=== PATIENT | male | born 1945 | race Caucasian/White ===

== ENCOUNTER 2024-01-18 06:59 | Observation (INO) | payer OTHER ==
[2024-01-18 07:39] LABS: Absolute Eosinophils 0.2 K/uL (0-0.5); Absolute Lymphocytes (CBC) 0.9 K/uL (0.7-4.9); Absolute Monocytes 0.5 K/uL (0.1-1.3); Absolute Neutrophil 5.9 K/uL (1.8-8.0); Basophils % 0.6 % (0-1.3); Eosinophils % 2.8 % (0-4.4); Hematocrit 49.7 % (39.6-49.0); Hemoglobin 16.7 g/dL (13.6-17.9); Lymphocytes % 12.3 % (15.3-44.8); MCH 32.1 pg (27.0-35.0); MCHC 33.5 g/dL (32.0-36.0); MCV 95.8 fL (80-100); Neutrophils % 77.3 % (41.7-73.7); Nucleated Red Blood Cells % 0.2 % (0-0); Platelets 253 thou/uL (152-406); RBC Red Blood Cell Count 5.19 M/uL (4.33-5.43)
[2024-01-18 07:45] LABS: PT Prothrombin Time 11.8 SECONDS (9.4-12.5); PTT, Activated Partial Thromb 34.3 SECONDS (24.3-36.9); Protime INR 1.06
[2024-01-18] MEDS ORDERED: ACETAMINOPHEN 500 MG TAB ONE (07:51)
[2024-01-18 07:56] LABS: Albumin 3.3 g/dL (3.4-5.0); Albumin/Globulin Ratio 0.9 (1.1-1.8); Bilirubin Total 1.1 mg/dL (0.2-1.0); Globulin 3.5 g/dL (2.3-3.5); Protein, Total 6.8 g/dL (6.4-8.2)
[2024-01-18] MEDS ORDERED: CEFTRIAXONE 1000 MG/VIAL ONE (08:02)
[2024-01-18] MEDS ORDERED: NA CHLORIDE 0.9% 500 ML ONE (08:03)
[2024-01-18 08:12] LABS: SARS-CoV-2 Antigen CONTROL BLUE LINE VIS/BG OK; SARS-CoV-2 Antigen Rapid Res Negative (Negative)
--- NOTE | 2024-01-18 09:01 | RAD REPORT ---
EXAMINATION: ONE VIEW CHEST XR CLINICAL INDICATION: Male, 78 years old.,COUGH TECHNIQUE: Frontal chest projection is submitted. Examination is limited by patient positioning and t echnique. COMPARISON: 07/30/2012 FINDINGS: The lungs are well inflated, with no focal consolidation. Central interstitial prominence. No pneumo thorax or sizable effusion. The heart is moderately enlarged in size. Mediastinal contours are unremarkable. IMPRESSION: Findings suggesting central venous congestion or CHF.
[2024-01-18] MEDS ORDERED: ONDANSETRON 4 MG/2 ML VIAL IV PRN (09:36)
--- NOTE | 2024-01-18 09:37 | EDPHYS ---
Physician Documentation [facility] Name: Casey Kahn Age: 78 yrs Sex: Male : 1945 Arrival Date: 01/18/2024 Time: 06:59 Bed 18 Private MD: ED Physician Malcolm Zhang HPI: 01/17 07:51 This 78 yrs old Male presents to ER via Ambulatory with complaints of Chest ec2 Congestion. 07:51 Patient arrives today for evaluation of cough symptoms. Patient been having ec2 approximately greater than 10 days of cough symptoms. Patient reports he is having a productive sputum. No fevers or chills, no nausea or vomiting. Patient reports generalized weakness as well. History of previous smoking however stopped greater than 30 years ago.. Historical: - Allergies: 07:13 Sulfa (Sulfonamide Antibiotics); ll1 07:13 Hydocodone; ll1 - PMHx: 07:13 Diabetes - NIDDM; Hypertension; ll1 - Immunization history:: Adult Immunizations up to date. - Infectious Disease History:: Denies. - Social history:: Smoking status: Patient/guardian denies using tobacco, the patient reports quitting approximately 43 years ago. ROS: 07:51 Constitutional: as per hpi ec2 Exam: 07:51 Constitutional: GEN: NAD Head: atraumatic Eyes: EOMI Ears: External ears are ec2 normal. CV: regular rate LUNGS: no respiratory distress, no wheezes, no rales, rhonchi ABD: non-distended SKIN: no evidence of rashes MSK: no evidence of trauma Vital Signs: 07:14 BP 167 / 86; Pulse 98; Resp 22; Temp 98; Pulse Ox 88% on R/A; Weight 109.77 kg; Height ll1 5 ft. 10 in. ; Pain 0/10; 07:59 Resp 20; Pulse Ox 95% on 2 lpm NC; Pain 0/10; ll1 08:25 BP 175 / 95; Pulse 78; Resp 19; Pulse Ox 94% on 2 lpm NC; ll1 09:32 BP 175 / 93; Pulse 74; Resp 19; Pulse Ox 96% on 2 lpm NC; ll1 10:33 BP 171 / 85; Pulse 78; Resp 18; Pulse Ox 96% on 2 lpm NC; Pain 0/10; ll1 11:30 BP 166 / 82; Pulse 79; Resp 19; Pulse Ox 96% on 2 lpm NC; ll1 12:41 BP 156 / 82; Pulse 78; Resp 19; Pulse Ox 94% on R/A; ll1 07:14 Body Mass Index 34.72 (109.77 kg, 177.8 cm) ll1 07:14 Pain Scale: Adult ll1 07:59 Pain Scale: Adult ll1 10:33 Pain Scale: Adult ll1 MDM: 07:07 Medical Screening Exam initiated ec2 07:51 Data reviewed: vital signs. ED course: Patient arrives today for evaluation of cough ec2 and cold symptoms. Examination is remarkable for nontoxic individual who is in no significant respiratory distress. Will obtain septic workup and empirically treat with ceftriaxone.. 08:00 ED course: EKG independently reviewed and interpreted by me, shows normal sinus rhythm, ec2 rate of 83, no acute ST segment elevations, intervals are nonactionable. Does have nonspecific T wave abnormalities noted in the lateral leads.. 09:35 ED course: Patient with hypoxic saturations with sats in the mid 80, placed on oxygen ec2 with improvement. Will admit for hypoxia, likely CHF. Discussed with hospitalist, patient will be admitted to floor with med/tele. Will replenish hypokalemia as well.. 01/17 07:08 Order name: Influenza Screen (a \T\ B); Complete Time: 08:14 ec2 01/17 07:08 Order name: SARS RAPID; Complete Time: 08:14 ec2 01/17 07:14 Order name: Blood Culture Adult (2) ec2 01/17 07:14 Order name: CBC with Diff; Complete Time: 07:53 ec2 01/17 07:14 Order name: CMP; Complete Time: 08:03 ec2 01/17 07:14 Order name: Lactate w/ 2H reflex if indic.; Complete Time: 08:14 ec2 01/17 07:14 Order name: Protime (+inr); Complete Time: 07:53 ec2 01/17 07:14 Order name: Ptt, Activated; Complete Time: 07:53 ec2 01/17 09:02 Order name: BNP; Complete Time: 09:31 ec2 01/17 09:40 Order name: Urinalysis w/ reflexes EDMS 01/17 07:08 Order name: CXR XRAY; Complete Time: 09:01 ec2 01/17 09:40 Order name: CONS Physician Consult EDMS 01/17 07:14 Order name: Cardiac monitoring; Complete Time: 08:00 ec2 01/17 07:14 Order name: EKG - Nurse/Tech; Complete Time: 07:59 ec2 01/17 07:14 Order name: IV Saline Lock - Large Bore; Complete Time: 07:36 ec2 01/17 07:14 Order name: Labs collected and sent; Complete Time: 07:36 ec2 01/17 07:14 Order name: O2 Per Protocol; Complete Time: 07:36 ec2 01/17 07:14 Order name: O2 Sat Monitoring; Complete Time: 07:36 ec2 01/17 07:14 Order name: Vital Signs; Complete Time: 07:36 ec2 Administered Medications: 08:08 Drug: Acetaminophen PO 1000 mg PO once Route: PO; ll1 09:33 Follow up: Response: No adverse reaction; Pain is decreased 1 08:08 Drug: Rocephin IV 1 grams IV at calculated rate once; Given slow IV push per pharmacy ll1 instructions Route: IV; Rate: calculated rate; Site: right antecubital; 09:00 Follow up: Response: No adverse reaction; IV Status: Completed infusion; IV Intake: [id number] 08:08 Drug: NS 0.9% IV 500 ml 500 ml IV at 1 bolus once; to be given as a bolus over 30 ll1 minutes Volume: 500 ml; Route: IV; Rate: 1 bolus; Site: right antecubital; 09:33 Follow up: Response: No adverse reaction; IV Status: Completed infusion; IV Intake: ll1 500ml 09:57 Drug: Potassium Chloride PO 40 mEq PO once Route: PO; ll1 10:46 Follow up: Response: No adverse reaction ll1 09:57 Drug: Potassium Chloride IV 20 mEq IV at calculated rate once; administer over 1-2 ll1 hours Route: IV; Rate: calculated rate; Site: right antecubital; 12:00 Follow up: Response: No adverse reaction; IV Status: Completed infusion; IV Intake: ll1 100ml 09:57 Drug: Furosemide IVP 20 mg IVP once; give over 2 minutes Route: IVP; Site: right ll1 antecubital; 10:47 Follow up: Response: No adverse reaction ll1 Disposition Summary: 01/18/24 09:36 Hospitalization Ordered Notes: Hospitalization Status: Inpatient Admission ec2 Provider: Rosendo Polk ec2 Location: Telemetry/MedSur (Inpatient) ec2 Condition: Stable ec2 Problem: new ec2 Symptoms: have improved ec2 Bed/Room Type: Standard ec2 Room Assignment: 202(01/18/24 12:32) kb3 Diagnosis - Acute respiratory failure with hypoxia ec2 - Volume Overload ec2 Forms: - Medication Reconciliation Form ec2 - SBAR form ec2 - Leadership Thank You Letter ec2 Signatures: Dispatcher [employer] EDMS Diana Tesfaye, RN RN ll1 Carolina Soares RN RN kb3 Malcolm Zhang MD MD ec2 Corrections: (The following items were deleted from the chart) 07:08 07:08 Chest Single View+RAD.RAD.BRZ ordered. EDMS EDMS 07:14 07:14 BLOOD CULTURE*+BA.LAB.BRZ ordered. EDMS EDMS 07:14 07:14 CBC+H.LAB.BRZ ordered. EDMS EDMS 07:14 07:14 COMPREHENSIVE METABOLIC PANEL+C.LAB.BRZ ordered. EDMS EDMS 07:14 07:14 LACTATE+C.LAB.BRZ ordered. EDMS EDMS 07:14 07:14 PROTIME (+INR)+COAG.LAB.BRZ ordered. EDMS EDMS 07:14 07:14 PTT, ACTIVATED+COAG.LAB.BRZ ordered. EDMS EDMS 08:00 07:14 Accucheck ordered. ec2 ll1 12:32 09:36 ec2 kb3
--- NOTE | 2024-01-18 09:37 | ER ---
Nurse's Notes [facility] Name: Casey Kahn Age: 78 yrs Sex: Male : 1945 Arrival Date: 01/18/2024 Time: 06:59 Bed 18 Private MD: Diagnosis: Acute respiratory failure with hypoxia;Volume Overload Presentation: 01/17 07:14 Chief complaint: Patient states: Cough, congestion for 2 weeks. Just finished 10 days ll1 of antibiotics, got better but awoke today SOB. No fever or NVD. Coronavirus screen: Client denies travel out of the [place] in the last 14 days. Ebola Screen: Patient denies travel to an Ebola-affected area in the 21 days before illness onset. Initial Sepsis Screen: Does the patient meet any 2 criteria? No. Patient's initial sepsis screen is negative. Does the patient have a suspected source of infection? No. Patient's initial sepsis screen is negative. Risk Assessment: Do you want to hurt yourself or someone else? Patient reports no desire to harm self or others. Onset of symptoms was December 31, 2023. 07:14 Method Of Arrival: Ambulatory ll1 07:14 Acuity: AISHA 3 ll1 Triage Assessment: 07:14 General: Appears in no apparent distress. Behavior is calm, cooperative, appropriate ll1 for age. Pain: Denies pain. Neuro: No deficits noted. Cardiovascular: No deficits noted. Respiratory: Reports shortness of breath on exertion cough that is labored breathing Airway is patent Trachea midline Respiratory effort is even, labored, Respiratory pattern is symmetrical, tachypnea Breath sounds are coarse bilaterally. Onset: The symptoms/episode began/occurred 2 weeks ago, the patient has mild shortness of breath. Historical: - Allergies: 07:13 Sulfa (Sulfonamide Antibiotics); ll1 07:13 Hydocodone; ll1 - PMHx: 07:13 Diabetes - NIDDM; Hypertension; ll1 - Immunization history:: Adult Immunizations up to date. - Infectious Disease History:: Denies. - Social history:: Smoking status: Patient/guardian denies using tobacco, the patient reports quitting approximately 43 years ago. Screenin:26 [facility] ED Fall Risk Assessment (Adult) History of falling in the last 3 months, ll1 including since admission No falls in past 3 months (0 pts) Confusion or Disorientation No (0 pts) Intoxicated or Sedated No (0 pts) Impaired Gait No (0 pts) Mobility Assist Device Used No (0 pt) Altered Elimination No (0 pt) Score/Fall Risk Level 0 - 2 = Low Risk Maintained a safe environment, Hourly rounding (assess needs \T\ fall precautionary measures) done. Abuse screen: Denies threats or abuse. Nutritional screening: No deficits noted. Tuberculosis screening: No symptoms or risk factors identified. Assessment: 08:10 Reassessment: No changes from previously documented assessment. Patient and/or family ll1 updated on plan of care and expected duration. Pain level reassessed. Patient is alert, oriented x 3, equal unlabored respirations, skin warm/dry/pink. Patient states feeling better. Patient states symptoms have improved. 09:00 Reassessment: No changes from previously documented assessment. Patient and/or family ll1 updated on plan of care and expected duration. Pain level reassessed. 10:00 Reassessment: No changes from previously documented assessment. Patient and/or family ll1 updated on plan of care and expected duration. Pain level reassessed. 10:30 Reassessment: No changes from previously documented assessment. Patient and/or family ll1 updated on plan of care and expected duration. Pain level reassessed. Patient is alert, oriented x 3, equal unlabored respirations, skin warm/dry/pink. 12:42 Reassessment: No changes from previously documented assessment. Patient and/or family ll1 updated on plan of care and expected duration. Pain level reassessed. Patient is alert, oriented x 3, equal unlabored respirations, skin warm/dry/pink. Vital Signs: 07:14 BP 167 / 86; Pulse 98; Resp 22; Temp 98; Pulse Ox 88% on R/A; Weight 109.77 kg; Height ll1 5 ft. 10 in. ; Pain 0/10; 07:59 Resp 20; Pulse Ox 95% on 2 lpm NC; Pain 0/10; ll1 08:25 BP 175 / 95; Pulse 78; Resp 19; Pulse Ox 94% on 2 lpm NC; ll1 09:32 BP 175 / 93; Pulse 74; Resp 19; Pulse Ox 96% on 2 lpm NC; ll1 10:33 BP 171 / 85; Pulse 78; Resp 18; Pulse Ox 96% on 2 lpm NC; Pain 0/10; ll1 11:30 BP 166 / 82; Pulse 79; Resp 19; Pulse Ox 96% on 2 lpm NC; ll1 12:41 BP 156 / 82; Pulse 78; Resp 19; Pulse Ox 94% on R/A; ll1 07:14 Body Mass Index 34.72 (109.77 kg, 177.8 cm) ll1 07:14 Pain Scale: Adult ll1 07:59 Pain Scale: Adult ll1 10:33 Pain Scale: Adult ll1 ED Course: 07:07 Patient arrived in ED. mg5 07:07 Malcolm Zhang MD is Attending Physician. ec2 07:13 Arm band placed on Patient placed in an exam room, on a stretcher. ll1 07:15 Triage completed. ll1 07:15 Patient has correct armband on for positive identification. Bed in low position. Call 1 light in reach. Provided Education on: ER procedures and process. 07:15 Initial lab(s) drawn, by tn, sent to lab. First set of blood cultures drawn. Inserted [facility] saline lock: 20 gauge in right antecubital area, using aseptic technique. Blood collected. Flushed with 10 mL NS. 07:19 CXR XRAY In Process Unspecified. EDMS 07:35 Second set of blood cultures drawn COVID swab sent to lab. Flu and/or RSV swab sent to [facility] lab. 08:00 EKG done, by technical assistance consultant. reviewed by Malcolm Zhang MD. nh2 08:22 Diana Tesfaye, JESUS is Primary Nurse. ll1 09:36 Rosendo Polk MD is Hospitalizing Provider. ec2 12:42 No provider procedures requiring assistance completed. Patient admitted, IV remains in ll1 place. Administered Medications: 08:08 Drug: Acetaminophen PO 1000 mg PO once Route: PO; ll1 09:33 Follow up: Response: No adverse reaction; Pain is decreased ll1 08:08 Drug: Rocephin IV 1 grams IV at calculated rate once; Given slow IV push per pharmacy [facility] instructions Route: IV; Rate: calculated rate; Site: right antecubital; 09:00 Follow up: Response: No adverse reaction; IV Status: Completed infusion; IV Intake: 16qhes0 08:08 Drug: NS 0.9% IV 500 ml 500 ml IV at 1 bolus once; to be given as a bolus over 30 ll1 minutes Volume: 500 ml; Route: IV; Rate: 1 bolus; Site: right antecubital; 09:33 Follow up: Response: No adverse reaction; IV Status: Completed infusion; IV Intake: ll1 500ml 09:57 Drug: Potassium Chloride PO 40 mEq PO once Route: PO; ll1 10:46 Follow up: Response: No adverse reaction ll1 09:57 Drug: Potassium Chloride IV 20 mEq IV at calculated rate once; administer over 1-2 ll1 hours Route: IV; Rate: calculated rate; Site: right antecubital; 12:00 Follow up: Response: No adverse reaction; IV Status: Completed infusion; IV Intake: ll1 100ml 09:57 Drug: Furosemide IVP 20 mg IVP once; give over 2 minutes Route: IVP; Site: right ll1 antecubital; 10:47 Follow up: Response: No adverse reaction ll1 Medication: 08:27 VIS not applicable for this client. ll1 Intake: 09:00 IV: 10ml; Total: 10ml. ll1 09:33 IV: 500ml; Total: 510ml. ll1 12:00 IV: 100ml; Total: 610ml. ll1 Outcome: 09:36 Decision to Hospitalize by Provider. ec2 12:42 Admitted to Med/surg accompanied by tech, via wheelchair, room 202, with oxygen, with 1 chart, Report called to faxed to [facility] at 1217 12:42 Condition: stable 12:42 Instructed on the need for admit, 13:12 Patient left the ED. Signatures: Dispatcher [employer] EDThania Betancourt RN RN Diana Tesfaye RN RN ll1 Lalita Lees mg5 Malcolm Zhang MD MD ec2 Kee Holloway Jr [facility] Corrections: (The following items were deleted from the chart) 07:59 07:14 Pulse 98bpm; Resp 22bpm; Pulse Ox 88% RA; 109.77 kg; Height 5 ft. 10 in.; BMI: ll1 34.7; Pain 0/10, Adult; ll1
[2024-01-18] MEDS ORDERED: FUROSEMIDE 20 MG/ 2ML VIAL ONE (09:41)
[2024-01-18] MEDS ORDERED: POTASSIUM CL SA 10 MEQ TAB PO ONE (09:41)
[2024-01-18] MEDS ORDERED: KCL 20 MEQ/100 mL IVPB 100 ML IV ONE (09:42)
[2024-01-18 13:42] VITALS: O2SAT 94
[2024-01-18 14:38] VITALS: BMI 34.7
--- NOTE | 2024-01-18 19:55 | P.HP ---
Certification for Inpatient With expected LOS: <2 Midnights Practitioner: I am a practitioner with admitting privileges, knowledge of patient current condition, hospital course, and medical plan of care. Services: Services provided to patient in accordance with Admission requirements found in Title 42 Section 412.3 of the Code of Federal Regulations Patient History Date of Service: 01/18/24 Reason for admission: heart failure exacerbation, decompensated heart failure History of Present Illness: 78-year-old man with a past medical history significant for CHF, HDL, DM, and depression presented to the emergency department complaining of a productive cough x 10 days. The patient states that initially his cough produced a yellow sputum, but now it is slightly blood-tinged. He states he has attempted a 2 or 3-day course of antibiotic (unknown) that he had at home to alleviate his cough to no avail. The patient states that nothing worsens his cough. He is a former smoker that quit 43 years ago. Patient was given 1 dose of ceftriaxone in the emergency department earlier today. His chest x-ray revealed congestion consistent with congestive heart failure. Allergies Sulfa (Sulfonamide Antibiotics) [Sulfa(Sulfonamide Antibiotics)] Allergy (Intermediate, Verified 07/16/11 20:38) Itching acetaminophen [From Vicodin] Adverse Reaction (Verified 07/19/11 11:26) hallucinate hydrocodone bitartrate [From Vicodin] Adverse Reaction (Verified 07/19/11 11:26) hallucinate Home medications list reviewed: Yes Home Medications: Atorvastatin Calcium 20 mg PO DAILY 01/18/24 Chlorthalidone 50 mg PO DAILY 01/18/24 Cyanocobalamin [Vitamin B-12*] 1 tab PO DAILY 01/18/24 Metformin HCl 1,000 mg PO BID 01/18/24 Red Beet Root/Sour Chan Ext [Beet Root-Tart Chan Gummy] 1 dose PO DAILY 01/18/24 Sertraline [Zoloft*] 50 mg PO DAILY 01/18/24 Tizanidine HCl 4 mg PO PRN PRN 01/18/24 Tumeric/Ging/Katy/Oreg/Capryl [Candicidal Capsule] 1 each PO DAILY 01/18/24 - Past Medical/Surgical History Has patient received pneumonia vaccine in the past: Yes Diabetic: Yes -: HTN -: Diabetic -: Depression -: HDL -: CHF -: TALI knee Replacement -: RT shoulder replacement -: LT 3rd digit sx -: Back sx - Social History Smoking Status: Former smoker (quit 43 years ago) Alcohol use: No CD- Drugs: No Caffeine use: Yes Place of Residence: Home Review of Systems Respiratory: Cough, Shortness of Breath Physical Examination - Vital Signs Temperature: 98.6 F Blood Pressure: 166/97 Pulse: 84 Respirations: 16 Pulse Ox (%): 97 - Physical Exam General: Alert, Oriented x3 HEENT: Atraumatic, Normocephalic Neck: JVD not distended Respiratory: Normal air movement Cardiovascular: No edema, No gallops, No rubs, No murmurs Gastrointestinal: Normal bowel sounds, Non-distended Musculoskeletal: No swelling, No tenderness, No warmth Neurological: Normal strength at 5/5 x4 extr, Sensation intact - Studies Laboratory Data (last 24 hrs) 01/18/24 01/18/24 01/18/24 07:15 07:15 07:15 WBC 7.60 Hgb 16.7 Hct 49.7 H Plt Count 253 PT 11.8 INR 1.06 APTT 34.3 Sodium 138 Potassium 3.0 L BUN 13 Creatinine 1.15 Glucose 121 H Total Bilirubin 1.1 H AST 24 ALT 27 Alkaline Phosphatase 87 Microbiology Data (last 24 hrs): 01/18/24 07:35 Nasopharnyx Influenza Type A Antigen Screen - Final 01/18/24 07:35 Nasopharnyx Influenza Type B Antigen Screen - Final Assessment and Plan - Problems (Diagnosis) (1) CHF exacerbation Current Visit: Yes Status: Acute Qualifiers: Heart failure type: diastolic Qualified Code(s): I50.33 - Acute on chronic diastolic (congestive) heart failure (2) Decompensated heart failure Current Visit: Yes Status: Acute - Plan CHF exacerbation: Ceftriaxone given in ED Continue to trend BMP Lab work ordered Decompensated heart failure: Cardiology consulted echocardiogram ordered Telemetry ordered Resumed statin, ARB Lovenox Diabetes mellitus: On insulin sliding scale Resumed metformin home medication dose Depression: Resumed Zoloft home medication - Advance Directives Does patient have a Living Will: No Does patient have a Durable POA for Healthcare: No - Code Status/Comfort Care Code Status Assessed: Yes Code Status: Full Code
--- NOTE | 2024-01-18 20:01 | CON ---
Date of Consultation: 01/18/2024 Reason For Consultation: Borderline elevated troponin. History Of Present Illness: This is a 78-year-old male history of diabetes, hypertension, presented to the emergency room because of upper respiratory tract infection including cough with yellow and gr een sputum production with mild shortness of breath and there is no chest pain and no neck pain or ar m pain. No nausea, vomiting, diarrhea. No dysuria, polyuria, or urgency. No other symptoms. Past Medical History: Diabetes and hypertension. Medication: For reconciliation sheet for detailed list. Allergies: SULFA, ACETAMINOPHEN, HYDROCODONE. Family History: No premature coronary artery disease or cancer. Social History: Does not smoke or drink. Does not use any drugs. Review of Systems: All systems reviewed and they were negative except as mentioned in the HPI. Physical Examination: Vital Signs: Reviewed. Head and Neck: Pupils are equal, reactive to light. Intact eye movements. No JVD. No cervical lym phadenopathy. Neck: Supple. Thyroid is not enlarged. Lungs: Clear to auscultation bilaterally. No rhonchi, wheezing, or crackles. No accessory muscle us e. Heart: Regular rate and rhythm. No extra sounds. Abdomen: Soft, nontender. Bowel sounds positive. No organomegaly. No masses or hernia. No rigidi ty or rebound. Extremities: Trace edema bilaterally. No clubbing or cyanosis. Intact pulses. Skin: No rash. No nodule. Neurologic: Alert, awake, oriented x3. No acute focal deficits appreciated. Investigations: Chest x-ray some central venous congestion. NT-proBNP is 623. BUN is 13, creatinin e 1.15, hemoglobin 16.7. Chest x-ray showed pulmonary vascular congestion. Assessment/plan: 1.Pulmonary vascular congestion, could be due to the infectious process that he has. Recommend to c heck him for flu and COVID and also he needs an echocardiogram, which can be done as an outpatient as he does not have any significant symptoms suggesting heart failure. 2.Chest pain. He has been having chest pain only after coughing or moving the chest wall. I will t rend cardiac enzymes 2 sets, check 1 hour and then trend 2 sets and this patient will need outpatient evaluation with an echo and stress test both can be done as an outpatient as long as he is not havin g chest pain. 3.Hypokalemia. Replace potassium and treat accordingly. 4.Pulmonary vascular congestion, probably form of diastolic heart failure. A gentle diuresis with L asix is recommended. He was given a dose of 20 mg in the ER. I would continue the same dose and rec heck electrolytes tomorrow and please replace the potassium. Case was discussed with the staff. SR/MODL Voice ID: [id number] Report ID: [id number]
[2024-01-18] MEDS: VALSARTAN 40 MG TAB PO SCH (20:19)
[2024-01-18] MEDS: ENOXAPARIN 40 MG/0.4 ML SQ SCH (20:19)
[2024-01-18] MEDS: POTASSIUM CL SA 10 MEQ TAB PO SCH (20:19)
[2024-01-18] MEDS ORDERED: POTASSIUM CL SA 10 MEQ TAB PO SCH (21:00)
[2024-01-18] MEDS ORDERED: HOME MED 1 EA UNK (Metformin Hcl [Metformin Hcl] 1,000 MG Tablet) PO SCH (21:00)
[2024-01-18 22:47] LABS: Specific Gravity 1.011 (1.005-1.030); Sqamous Epithelial None Seen /HPF (None Seen); Urine Bacteria None Seen /HPF (<20); Urine Bilirubin NEGATIVE (Negative); Urine Blood Negative (Negative); Urine Clarity Clear (Clear); Urine Color Light-Yellow (Yellow); Urine Culture Reflex Order NOT NEEDED; Urine Glucose NEGATIVE (Negative); Urine Ketones NEGATIVE (Negative); Urine Microscopic Reflex YN ORDER UMIC; Urine Nitrite NEGATIVE (Negative); Urine Protein 2+ (Negative); Urine RBC <5 /HPF (None Seen); Urine Urobilinogen Normal (Normal); Urine WBC None Seen /HPF (<5)
[2024-01-19] MEDS: ACETAMINOPHEN 500 MG TAB PO PRN (00:37)
[2024-01-19 07:23] LABS: Absolute Basophils 0.1 K/uL (0-0.5); Absolute Eosinophils 0.2 K/uL (0-0.5); Absolute Lymphocytes (CBC) 1.4 K/uL (0.7-4.9); Absolute Monocytes 0.7 K/uL (0.1-1.3); Absolute Neutrophil 5.2 K/uL (1.8-8.0); Basophils % 1.1 % (0-1.3); Eosinophils % 2.6 % (0-4.4); Hematocrit 47.8 % (39.6-49.0); Hemoglobin 15.9 g/dL (13.6-17.9); Lymphocytes % 18.1 % (15.3-44.8); MCH 32.1 pg (27.0-35.0); MCHC 33.2 g/dL (32.0-36.0); MCV 96.7 fL (80-100); MPV 7.8 fL (7.6-11.3); Monocytes % 9.1 % (3.3-12.3); Neutrophils % 69.1 % (41.7-73.7); Platelets 245 thou/uL (152-406); RBC Red Blood Cell Count 4.94 M/uL (4.33-5.43); Red Cell Distribution Width 14.2 % (12.1-15.2)
[2024-01-19 07:41] LABS: Anion Gap 5.2 mEq/L (5.0-15.0); Magnesium 2.1 mg/dL (1.6-2.4); Potassium 3.2 mEq/L (3.5-5.1)
[2024-01-19 08:33] VITALS: BP 177/83; TEMP 98.4
[2024-01-19] MEDS: METFORMIN HCL 500 MG TAB PO SCH (08:39)
[2024-01-19] MEDS: FUROSEMIDE 20 MG/ 2ML VIAL IV SCH (08:40)
[2024-01-19] MEDS: ATORVASTATIN 20 MG TAB PO SCH (08:40)
[2024-01-19] MEDS: SERTRALINE HCL 50 MG TAB PO SCH (08:41)
[2024-01-19] MEDS: CYANOCOBALAMIN 1,000 MCG TAB PO SCH (08:41)
--- NOTE | 2024-01-19 10:09 | P.DS ---
Admission Date: 01/18/24 Discharge Date: 01/19/24 Disposition: ROUTINE DISCHARGE Discharge Condition: FAIR Reason for Admission: heart failure exacerbation, decompensated heart failure Brief History of Present Illness: Patient is 78 years of age admitted with mild hemoptysis recently treated with outpatient antibiotic Hospital Course: Patient is 78 years of age with mild hemoptysis patient is [facility] was treated recently treated with 10 days of amoxicillin any fever or chills with a diagnosis of congestive heart failure his BNP was elevated chest x-ray shows cardiomegaly with some pulmonary vascular congestion well during the course of his stay was given some IV Lasix and was seen by Dr. Miguel and was discharged home on spironolactone with hydrochlorothiazide significant hypokalemia I suspect is from the chlorthalidone blood pressure was also elevated patient has been instructed to stop his chlorthalidone follow-up with Dr. Polk Also has a history of obstructive sleep apnea and his CPAP needs to be replaced and he will follow-up with me accordingly time of discharge he was doing well alert oriented responsive cooperative blood pressure is little elevated chest clear and was ready to go home Vital Signs/Physical Exam: Temp Pulse Resp BP Pulse Ox 98.4 F 60 16 177/83 H 95 01/19/24 08:00 01/19/24 08:40 01/19/24 08:00 01/19/24 08:40 01/19/24 08:00 Laboratory Data at Discharge: WBC 7.50 thou/uL (4.3-10.9) 01/19/24 06:44 Hgb 15.9 g/dL (13.6-17.9) 01/19/24 06:44 Hct 47.8 % (39.6-49.0) 01/19/24 06:44 Plt Count 245 thou/uL (152-406) 01/19/24 06:44 PT 11.8 SECONDS (9.4-12.5) 01/18/24 07:15 INR 1.06 01/18/24 07:15 APTT 34.3 SECONDS (24.3-36.9) 01/18/24 07:15 Sodium 138 mEq/L (136-145) 01/19/24 06:44 Potassium 3.2 mEq/L (3.5-5.1) L 01/19/24 06:44 BUN 13 mg/dL (7-18) 01/19/24 06:44 Creatinine 1.16 mg/dL (0.70-1.30) 01/19/24 06:44 Glucose 134 mg/dL (74-106) H 01/19/24 06:44 Magnesium 2.1 mg/dL (1.6-2.4) 01/19/24 06:44 Total Bilirubin 1.1 mg/dL (0.2-1.0) H 01/18/24 07:15 AST 24 U/L (15-37) 01/18/24 07:15 ALT 27 U/L (16-61) 01/18/24 07:15 Alkaline Phosphatase 87 U/L (45-117) 01/18/24 07:15 Home Medications: Atorvastatin Calcium 20 mg PO DAILY 01/18/24 Cyanocobalamin [Vitamin B-12*] 1 tab PO DAILY 01/18/24 Metformin HCl 1,000 mg PO BID 01/18/24 Red Beet Root/Sour Chan Ext [Beet Root-Tart Chan Gummy] 1 dose PO DAILY 01/18/24 Sertraline [Zoloft*] 50 mg PO DAILY 01/18/24 Tizanidine HCl 4 mg PO PRN PRN 01/18/24 Tumeric/Ging/[place]/Oreg/Capryl [Candicidal Capsule] 1 each PO DAILY 01/18/24 Spironolact/Hydrochlorothiazid [Spironolactone-Hctz 25-25 Tab] 1 each PO BID 30 Days #60 tab 01/19/24 New Medications: Spironolact/Hydrochlorothiazid [Spironolactone-Hctz 25-25 Tab] 1 each PO BID 30 Days #60 tab Physician Discharge Instructions: Stop chlorthalidalone / New meds faxed Diet: Low sodium Activity: Ad romulo Followup: Rosendo Polk MD [Primary Care Provider] -
--- NOTE | 2024-01-21 12:22 | EKG ---
Test Date: 2024-01-18 Test Time: 07:57:44 Industrial Eng: KERWIN MEASUREMENT RESULTS: Intervals: Rate: 83 WA: 170 QRSD: 94 QT: 410 QTc: 481 [place]: P: 57 WA: 170 QRS: 53 T: 227 INTERPRETIVE STATEMENTS: Normal sinus rhythm with sinus arrhythmia ST & T wave abnormality, consider inferolateral ischemia Prolonged QT Abnormal ECG Compared to ECG 08/20/2010 23:31:03 ST (T wave) deviation now present Possible ischemia now present Prolonged QT interval now present Atrial abnormality no longer present T-wave abnormality no longer present Electronically Signed On 01-21-24 12:16:54 [employer] SUPERVISOR by Edu Montero
== END 2024-01-19 11:00 | disposition home or self-care (01) ==
LOC: ER 06:59 → 2ND 09:36 → INTOOBSV 09:36
PROVIDERS: ADMIT Internal Medicine; ATTEND Internal Medicine Sleep Medicine
DX: I50.33 Acute on chronic diastolic (congestive) heart failure (principal); I28.9 Disease of pulmonary vessels, unspecified; J06.9 Acute upper respiratory infection, unspecified; E11.9 Type 2 diabetes mellitus without complications; E78.5 Hyperlipidemia, unspecified; R07.89 Other chest pain; R05.9 Cough, unspecified; E87.6 Hypokalemia; F32.A Depression, unspecified; I10 Essential (primary) hypertension; Z88.2 Allergy status to sulfonamides; Z88.5 Allergy status to narcotic agent; Z11.52 Encounter for screening for COVID-19
CPT/HCPCS: 96365; 96367; 96361; 87040 ×2; 85025 ×2; 81001; 80048; 36415 ×2; 83735; 85610; 82947; 83605; 85730; 80053; 83880; 87804 ×2; 71045; 96375; 99285; 96366; 87811; J3480; J1940 ×2; J1650 ×2; J7040; J0696; 93005; G0378

== ENCOUNTER 2024-07-10 14:31 | Emergency (ER) | payer OTHER ==
[2024-07-10 15:15] LABS: Absolute Basophils 0.1 K/uL (0-0.5); Absolute Eosinophils 0.1 K/uL (0-0.5); Absolute Lymphocytes (CBC) 0.8 K/uL (0.7-4.9); Absolute Monocytes 0.7 K/uL (0.1-1.3); Absolute Neutrophil 7.2 K/uL (1.8-8.0); Basophils % 0.6 % (0-1.3); Eosinophils % 0.9 % (0-4.4); Hematocrit 42.6 % (39.6-49.0); Hemoglobin 15.1 g/dL (13.6-17.9); Lymphocytes % 9.1 % (15.3-44.8); MCH 32.5 pg (27.0-35.0); MCHC 35.4 g/dL (32.0-36.0); MCV 91.8 fL (80-100); MPV 6.6 fL (7.6-11.3); Monocytes % 8.1 % (3.3-12.3); Neutrophils % 81.3 % (41.7-73.7); Platelets 269 thou/uL (152-406); RBC Red Blood Cell Count 4.64 M/uL (4.33-5.43); Red Cell Distribution Width 15.4 % (12.1-15.2)
[2024-07-10 15:38] LABS: Albumin 3.2 g/dL (3.4-5.0); Albumin/Globulin Ratio 0.9 (1.1-1.8); Anion Gap 9.2 mEq/L (5.0-15.0); Bilirubin Total 0.6 mg/dL (0.2-1.0); Globulin 3.4 g/dL (2.3-3.5); Magnesium 2.1 mg/dL (1.6-2.4); Potassium 4.2 mEq/L (3.5-5.1); Protein, Total 6.6 g/dL (6.4-8.2)
[2024-07-10] MEDS ORDERED: NA CHLORIDE 0.9% 500 ML ONE (16:47)
--- NOTE | 2024-07-10 17:47 | ER ---
Nurse's Notes [facility] Name: Casey Kahn Age: 79 yrs Sex: Male : 1945 Arrival Date: 07/10/2024 Time: 14:31 Bed 20 Private MD: Diagnosis: Dehydration;muscle cramps Presentation: 07/10 14:33 Chief complaint: Patient states: Had low blood sugar, ate something, then laid down in ll1 living room. Legs started cramping after resting. Coronavirus screen: Client denies travel out of the [place] in the last 14 days. At this time, the client does not indicate any symptoms associated with coronavirus-19. Ebola Screen: Patient denies travel to an Ebola-affected area in the 21 days before illness onset. Initial Sepsis Screen: Does the patient meet any 2 criteria? No. Patient's initial sepsis screen is negative. Does the patient have a suspected source of infection? No. Patient's initial sepsis screen is negative. Risk Assessment: Do you want to hurt yourself or someone else? Patient reports no desire to harm self or others. Onset of symptoms was July 10, 2024. 14:33 Method Of Arrival: EMS: [facility] ll1 14:33 Acuity: AISHA 3 ll1 Triage Assessment: 14:34 General: Appears in no apparent distress. Behavior is calm, cooperative, appropriate ll1 for age. General: Reports low blood suagr. Pain: Complains of pain in right leg and left leg Quality of pain is described as crampy. Neuro: No deficits noted. Musculoskeletal: Reports pain in right leg and left leg. Historical: - Allergies: 14:33 Hydocodone; ll1 14:33 Sulfa (Sulfonamide Antibiotics); ll1 - PMHx: 14:33 Diabetes - NIDDM; Hypertension; CHF (Hypertension); ll1 - PSHx: 14:33 orthopedic surgery (Hypertension); ll1 - Immunization history:: Adult Immunizations up to date. - Infectious Disease History:: Denies. - Social history:: Smoking status: Patient denies any tobacco usage or history of. Screenin:16 [facility] ED Fall Risk Assessment (Adult) History of falling in the last 3 months, ll1 including since admission No falls in past 3 months (0 pts) Confusion or Disorientation No (0 pts) Intoxicated or Sedated No (0 pts) Impaired Gait Yes (1 pt) Mobility Assist Device Used Yes (1 pt) Altered Elimination No (0 pt) Score/Fall Risk Level 0 - 2 = Low Risk Maintained a safe environment, Hourly rounding (assess needs \T\ fall precautionary measures) done. Abuse screen: Denies threats or abuse. Nutritional screening: No deficits noted. Tuberculosis screening: No symptoms or risk factors identified. Assessment: 15:16 Reassessment: No changes from previously documented assessment. Patient and/or family ll1 updated on plan of care and expected duration. Pain level reassessed. Patient is alert, oriented x 3, equal unlabored respirations, skin warm/dry/pink. 16:53 Reassessment: No changes from previously documented assessment. Patient and/or family ss updated on plan of care and expected duration. Pain level reassessed. Patient is alert, oriented x 3, equal unlabored respirations, skin warm/dry/pink. 17:53 Reassessment: No changes from previously documented assessment. Patient and/or family ll1 updated on plan of care and expected duration. Pain level reassessed. Patient is alert, oriented x 3, equal unlabored respirations, skin warm/dry/pink. Vital Signs: 14:42 BP 164 / 74; Pulse 78; Resp 18; Temp 97.2; Pulse Ox 97% on R/A; Weight 102.06 kg; ll1 Height 5 ft. 10 in. ; Pain 3/10; 16:00 BP 159 / 79; Pulse 72; Pulse Ox 96% ; ll1 17:12 BP 156 / 75; Pulse 80; Resp 18; Pulse Ox 96% on R/A; ll1 17:53 BP 145 / 68; Pulse 70; Resp 17; Pulse Ox 96% ; ll1 14:42 Body Mass Index 32.28 (102.06 kg, 177.8 cm) ll1 14:42 Pain Scale: Adult ll1 ED Course: 14:32 Patient arrived in ED. ll1 14:32 Arm band placed on Patient placed in an exam room, on a stretcher. ll1 14:34 Triage completed. ll1 14:39 Naomie Al MD is Attending Physician. sw6 15:09 Inserted saline lock: 20 gauge in right forearm, using aseptic technique. Blood ll1 collected. Flushed with 10 mL NS. 15:16 Patient has correct armband on for positive identification. Bed in low position. Call 1 light in reach. Provided Education on: ER procedures and process. Client placed on continuous cardiac and pulse oximetry monitoring. NIBP monitoring applied. 16:52 Mary Espinoza, RN is Primary Nurse. 17:14 Primary Nurse role handed off by Mary Espinoza, [facility] 17:14 Diana Tesfaye, RN is Primary Nurse. ll1 17:53 No provider procedures requiring assistance completed. IV discontinued, intact, ll1 bleeding controlled, No redness/swelling at site. Pressure dressing applied. Administered Medications: 16:53 Drug: NS 0.9% IV 500 ml 500 ml IV at 1 bolus once; to be given as a bolus over 30 ss minutes Volume: 500 ml; Route: IV; Rate: 1 bolus; Site: right antecubital; 17:55 Follow up: Response: No adverse reaction; IV Status: Completed infusion; IV Intake: ll1 500ml Medication: 15:16 VIS not applicable for this client. ll1 Intake: 17:55 IV: 500ml; Total: 500ml. 1 Outcome: 17:46 Discharge ordered by . sw6 17:55 Discharged to home ambulatory, 1 17:55 Condition: stable 17:55 Discharge instructions given to patient, Instructed on discharge instructions, follow up and referral plans. Demonstrated understanding of instructions, follow-up care, 17:55 Patient left the ED. 1 Signatures: Mary Espinoza RN RN Diana Tesfaye RN RN [facility] Naomie Al MD MD sw6
--- NOTE | 2024-07-10 17:47 | EDPHYS ---
Physician Documentation [facility] Name: Casey Kahn Age: 79 yrs Sex: Male : 1945 Arrival Date: 07/10/2024 Time: 14:31 Bed 20 Private MD: ED Physician Naomie Al HPI: 07/10 15:00 This 79 yrs old Male presents to ER via EMS with complaints of Low Blood sw6 Sugar, Leg Pain. 15:00 The patient presents from home and EMS for evaluation for an episode of low blood sugar sw6 that he had earlier today. He reports he slept in today and then got up and took his insulin as normal. He went downstairs and was getting ready to eat something when he felt himself get sweaty and felt lightheaded. He checked his blood sugar and noted it was 45. He then had some of his 's soda as well as some pieces of chocolate and waited and shortly felt better. He then went and sat down in his recliner and noted he had severe cramps in his bilateral legs. He finally called EMS at which time the cramps in his legs started to improve. He reports they are now gone. He does have a history of congestive heart failure as well as diabetes. No chest pain or pressure. No shortness of breath. No nausea, vomiting or diarrhea. No medication given prior to arrival. Here for evaluation. Historical: - Allergies: 14:33 Hydocodone; ll1 14:33 Sulfa (Sulfonamide Antibiotics); ll1 - PMHx: 14:33 Diabetes - NIDDM; Hypertension; CHF (Hypertension); ll1 - PSHx: 14:33 orthopedic surgery (Hypertension); ll1 - Immunization history:: Adult Immunizations up to date. - Infectious Disease History:: Denies. - Social history:: Smoking status: Patient denies any tobacco usage or history of. ROS: 15:00 Constitutional: Negative for fever, chills, and weight loss, Cardiovascular: Negative sw6 for chest pain, palpitations, and edema, Respiratory: Negative for shortness of breath, cough, wheezing, and pleuritic chest pain, Abdomen/GI: Negative for abdominal pain, nausea, vomiting, diarrhea, and constipation, 15:00 MS/extremity: Positive for Cramps to bilateral legs, 15:00 All other systems are negative, Exam: 15:00 Constitutional: This is a well developed, well nourished patient who is awake, alert, sw6 and in no acute distress. Neck: Trachea midline, no thyromegaly or masses palpated, and no cervical lymphadenopathy. Supple, full range of motion without nuchal rigidity, or vertebral point tenderness. No Meningismus. Chest/axilla: Normal chest wall appearance and motion. Nontender with no deformity. No lesions are appreciated. Cardiovascular: Regular rate and rhythm with a normal S1 and S2. No gallops, murmurs, or rubs. Normal PMI, no JVD. No pulse deficits. Respiratory: Lungs have equal breath sounds bilaterally, clear to auscultation and percussion. No rales, rhonchi or wheezes noted. No increased work of breathing, no retractions or nasal flaring. Abdomen/GI: Soft, non-tender, with normal bowel sounds. No distension or tympany. No guarding or rebound. No evidence of tenderness throughout. Neuro: Awake and alert, GCS 15, oriented to person, place, time, and situation. Cranial nerves II-XII grossly intact. Motor strength 5/5 in all extremities. Sensory grossly intact. Cerebellar exam normal. Normal gait. Psych: Awake, alert, with orientation to person, place and time. Behavior, mood, and affect are within normal limits. Vital Signs: 14:42 BP 164 / 74; Pulse 78; Resp 18; Temp 97.2; Pulse Ox 97% on R/A; Weight 102.06 kg; ll1 Height 5 ft. 10 in. ; Pain 3/10; 16:00 BP 159 / 79; Pulse 72; Pulse Ox 96% ; ll1 17:12 BP 156 / 75; Pulse 80; Resp 18; Pulse Ox 96% on R/A; ll1 17:53 BP 145 / 68; Pulse 70; Resp 17; Pulse Ox 96% ; ll1 14:42 Body Mass Index 32.28 (102.06 kg, 177.8 cm) ll1 14:42 Pain Scale: Adult ll1 MDM: 14:53 Medical Screening Exam initiated sw6 15:00 Differential diagnosis: hyperglycemia, hypoglycemic episode, Electrolyte abnormality, sw6 rhabdomyolysis, dehydration. Data reviewed: vital signs, nurses notes, EMS record. 17:45 Data reviewed: lab test result(s), CBC, electrolytes, hepatic panel. ED course: The sw6 patient is doing well in the ER. His laboratory studies show a normal potassium, magnesium as well as a CK level. He was given a small bolus of IV fluids and is doing well. He is able to ambulate around the department without difficulty. He remained stable here in the ER and is okay for discharge home with PCP follow-up.. 07/10 14:51 Order name: CBC with Diff; Complete Time: 16:00 [facility] 07/10 16:00 Interpretation: Within normal limits. 07/10 14:51 Order name: CMP; Complete Time: 16:00 [facility] 07/10 16:00 Interpretation: Within normal limits. 07/10 14:51 Order name: Magnesium; Complete Time: 16:00 [facility] 07/10 16:00 Interpretation: Within normal limits. 07/10 14:51 Order name: CK; Complete Time: 16:00 [facility] 07/10 16:00 Interpretation: Within normal limits. 07/10 15:26 Order name: Glucose, Ancillary Testing; Complete Time: 16:00 [facility] 07/10 16:00 Interpretation: Abnormal: Hyperglycemia. 07/10 14:51 Order name: IV Saline Lock; Complete Time: 14:59 [facility] 07/10 14:51 Order name: Labs collected and sent; Complete Time: 14:59 [facility] 07/10 14:51 Order name: Glucose Level; Complete Time: 15:15 [facility] Administered Medications: 16:53 Drug: NS 0.9% IV 500 ml 500 ml IV at 1 bolus once; to be given as a bolus over 30 ss minutes Volume: 500 ml; Route: IV; Rate: 1 bolus; Site: right antecubital; 17:55 Follow up: Response: No adverse reaction; IV Status: Completed infusion; IV Intake: ll1 500ml Disposition Summary: 07/10/24 17:46 Discharge Ordered Notes: Location: Home [facility] Condition: Stable 6 Diagnosis - Dehydration sw6 - muscle cramps 6 Followup: sw6 - With: Private Physician - When: 2 - 3 days - Reason: Discharge Instructions: - Discharge Summary Sheet 6 - Muscle Cramps and Spasms, [id number] sw6 - Dehydration, Adult, [id number] 6 Forms: - Medication Reconciliation Form 6 - Antibiotic Education 6 - Prescription Opioid Use sw6 - Patient Portal Instructions - Leadership Thank You Letter Signatures: Dispatcher [employer] Mary Brennan RN RN ss Diana Tesfaye RN RN ll1 Naomie Al MD MD
[2024-07-10 18:40] VITALS: TEMP 97.2
[2024-07-10 18:45] VITALS: O2SAT 96
[2024-07-10 18:53] VITALS: BP 145/68
== END 2024-07-10 17:55 | disposition home or self-care (01) ==
LOC: ER 14:31
DX: E86.0 Dehydration (principal); R25.2 Cramp and spasm; E11.9 Type 2 diabetes mellitus without complications; I10 Essential (primary) hypertension; I50.9 Heart failure, unspecified
CPT/HCPCS: 85025; 36415; 83735; 82550; 82947; 80053; 96360; 99284; J7040

== ENCOUNTER 2025-01-01 17:05 | Inpatient (IN) | payer OTHER ==
[2025-01-01 17:54] LABS: Absolute Lymphocytes (CBC) 1.5 K/uL (0.7-4.9); Hematocrit 43.7 % (39.6-49.0); Hemoglobin 14.7 g/dL (13.6-17.9); MCH 30.3 pg (27.0-35.0); MCHC 33.6 g/dL (32.0-36.0); MCV 90.0 fL (80-100); MPV 7.3 fL (7.6-11.3); Nucleated RBC Absolute Count 0.0 (0-0); Nucleated Red Blood Cells % 0.0 % (0-0); RBC Red Blood Cell Count 4.85 M/uL (4.33-5.43); White Blood Count 7.40 thou/uL (4.3-10.9)
[2025-01-01 18:02] LABS: PT Prothrombin Time 11.7 SECONDS (10-13.0); Protime INR 1.04
[2025-01-01] MEDS ORDERED: ENOXAPARIN 100 MG/ML SYR SQ ONE (18:07)
[2025-01-01] MEDS ORDERED: ASPIRIN 81 MG CHEWABLE TABLET ONE (18:07)
[2025-01-01] MEDS ORDERED: FAMOTIDINE 20 MG/2 ML VIAL IV ONE (18:07)
[2025-01-01 18:13] LABS: Influenza A Ag Negative; Influenza B Ag Negative; SARS-CoV-2 Antigen Rapid Res Negative (Negative)
[2025-01-01 18:16] LABS: Sqamous Epithelial None Seen /HPF (None Seen); Urine Culture Reflex Order NOT NEEDED; Urine Microscopic Reflex YN ORDER UMIC
[2025-01-01 18:19] LABS: ALT/SGPT 22 U/L (16-61); AST/SGOT 14 U/L (15-37); Albumin 3.3 g/dL (3.4-5.0); Albumin/Globulin Ratio 1.0 (1.1-1.8); Alkaline Phosphatase 118 U/L (45-117); Anion Gap 7.9 mEq/L (5.0-15.0); BUN Blood Urea Nitrogen 20 mg/dL (7-18); Bilirubin Indirect, Calculated 0.2 mg/dL (0.2-0.8); Globulin 3.4 g/dL (2.3-3.5); Glucose Level 245 mg/dL (74-106); Lipase 24 U/L (13-75); Magnesium 1.9 mg/dL (1.6-2.4); NT PRO-BNP 183 pg/mL (<450); Potassium 3.9 mEq/L (3.5-5.1); Troponin High Sensitivity 24.4 pg/mL (<58.9)
--- NOTE | 2025-01-01 18:38 | EDPHYS ---
Physician Documentation [facility] Name: Casey Kahn Age: 79 yrs Sex: Male : 1945 Arrival Date: 01/01/2025 Time: 17:05 Bed 2 Private MD: ED Physician Cristobal Vann HPI: 01/01 18:04 This 79 yrs old Male presents to ER via Ambulatory with complaints of beau Dizziness, Shortness Of Breath. 18:04 The patient presents with dizziness, generalized weakness. Onset: The symptoms/episode beau began/occurred 5 day(s) ago. Historical: - Allergies: 17:20 Sulfa (Sulfonamide Antibiotics); kb4 17:20 Hydocodone; kb4 - PMHx: 17:20 CHF (Hypertension); Diabetes - NIDDM; Hypertension; kb4 - Immunization history:: Adult Immunizations up to date. - Infectious Disease History:: Denies. - Social history:: Smoking status: Patient denies any tobacco usage or history of. ROS: 18:05 Constitutional: Negative for fever, chills, and weight loss, Eyes: Negative for injury, beau pain, redness, and discharge, ENT: Negative for injury, pain, and discharge, Neck: Negative for injury, pain, and swelling, Cardiovascular: Negative for chest pain, palpitations, and edema, Abdomen/GI: Negative for abdominal pain, nausea, vomiting, diarrhea, and constipation, Back: Negative for injury and pain, : Negative for injury, bleeding, discharge, and swelling, MS/Extremity: Negative for injury and deformity, Skin: Negative for injury, rash, and discoloration, Neuro: Negative for headache, weakness, numbness, tingling, and seizure, Psych: Negative for depression, anxiety, suicide ideation, homicidal ideation, and hallucinations, Allergy/Immunology: Negative for hives, rash, and allergies, Endocrine: Negative for neck swelling, polydipsia, polyuria, polyphagia, and marked weight changes, 18:05 Respiratory: Positive for shortness of breath, on exertion. Exam: 18:05 Constitutional: This is a well developed, well nourished patient who is awake, alert, beau and in no acute distress. Head/Face: Normocephalic, atraumatic. Eyes: Pupils equal round and reactive to light, extra-ocular motions intact. Lids and lashes normal. Conjunctiva and sclera are non-icteric and not injected. Cornea within normal limits. Periorbital areas with no swelling, redness, or edema. ENT: Nares patent. No nasal discharge, no septal abnormalities noted. Tympanic membranes are normal and external auditory canals are clear. Oropharynx with no redness, swelling, or masses, exudates, or evidence of obstruction, uvula midline. Mucous membranes moist. Neck: Trachea midline, no thyromegaly or masses palpated, and no cervical lymphadenopathy. Supple, full range of motion without nuchal rigidity, or vertebral point tenderness. No Meningismus. Chest/axilla: Normal chest wall appearance and motion. Nontender with no deformity. No lesions are appreciated. Cardiovascular: Regular rate and rhythm with a normal S1 and S2. No gallops, murmurs, or rubs. Normal PMI, no JVD. No pulse deficits. Respiratory: Lungs have equal breath sounds bilaterally, clear to auscultation and percussion. No rales, rhonchi or wheezes noted. No increased work of breathing, no retractions or nasal flaring. Abdomen/GI: Soft, non-tender, with normal bowel sounds. No distension or tympany. No guarding or rebound. No evidence of tenderness throughout. Back: No spinal tenderness. No costovertebral tenderness. Full range of motion. Male : Normal genitalia with no discharge or lesions. Skin: Warm, dry with normal turgor. Normal color with no rashes, no lesions, and no evidence of cellulitis. MS/ Extremity: Pulses equal, no cyanosis. Neurovascular intact. Full, normal range of motion., bilateral aka Neuro: Awake and alert, GCS 15, oriented to person, place, time, and situation. Cranial nerves II-XII grossly intact. Motor strength 5/5 in all extremities. Sensory grossly intact. Cerebellar exam normal. Normal gait. Psych: Awake, alert, with orientation to person, place and time. Behavior, mood, and affect are within normal limits. 18:05 ECG was reviewed by the Attending Physician. 18:05 Musculoskeletal/extremity: ROM: no acute changes, intact in all extremities, full active range of motion, full passive range of motion, Circulation is intact in all extremities. Sensation intact. Compartment Syndrome exam of affected extremity: is normal. Weight bearing: able to fully bear weight, DVT Exam: no pain, no swelling, no tenderness, negative Homans' sign noted on exam, no appreciated bluish discoloration, no erythema, no increased warmth, Vital Signs: 17:13 BP 163 / 76; Pulse 73; Resp 18; Temp 98.3; Pulse Ox 97% on R/A; Weight 105.23 kg; kb4 Height 5 ft. 10 in. ; 18:32 BP 161 / 72; Pulse 67; Resp 19; Pulse Ox 97% on R/A; ar8 19:44 BP 173 / 79; Pulse 69; Resp 16; Pulse Ox 97% on R/A; jb4 17:13 Body Mass Index 33.29 (105.23 kg, 177.8 cm) kb4 MDM: 17:22 Medical Screening Exam initiated beau 18:07 Differential diagnosis: Anemia Anxiety Reaction asthma, Bronchitis CHF exacerbation, beau Chronic Obstructive Pulmonary Disease Myocardial Infarction pneumonia, Pneumothorax Psychogenic pulmonary edema, Pulmonary Embolism reactive airway disease, Sepsis Unstable Angina. Antibiotic administration: Not indicated. Differential Diagnosis altered mental status, sepsis, flu. Differential diagnosis: cardiac arrhythmia, CVA, generalized weakness, hypovolemia, idiopathic dizziness, near-syncope, , syncope, TIA, vertigo. Data reviewed: vital signs, nurses notes, lab test result(s), EKG, radiologic studies, plain films. Consideration of Admission/Observation Patient was admitted/placed on observation. Escalation of care including admission/observation considered. I considered the following discharge prescriptions or medication management in the emergency department Medications were administered in the Emergency Department. See MAR. Independent interpretation of the following test(s) in the Emergency Department EKG: See my EKG interpretation above. Test considered but Not performed: Ultrasound no 2 d echo. Historians other than the Patient: Spouse/Significant Other: well informed. Care significantly affected by the following chronic conditions: Diabetes, Hypertension, Congestive Heart Failure, Obesity. 20:36 ED course: This is a 79 year old male who was seen by Dr. Feldman for evaluation of tt7 lightheadedness and dyspnea, he had standard cardiac workup here in the emergency department, Dr. Feldman plan to admit the patient to the hospital for observation, when the hospitalist came to assess the patient at the patient refused admission and wanted to leave the emergency department, I discussed the results of laboratory studies, imaging studies, and patient's initial presentation with the patient and his spouse, overall the patient is adamant that he wants to leave the emergency department, I had a risk/benefit discussion with the patient regarding this decision, he does have a moderate risk heart score but overall reassuring laboratory workup and imaging workup, his EKG does show some slight ST depression and T wave inversions, unsure if these are acute or chronic, the patient denies any chest pain at this time, I am comfortable with discharging the patient to follow-up with his outpatient ordering box operator this week and with the patient being aware of very strict return precautions after he has been informed of the potential risk of leaving the emergency department. 01/01 17:23 Order name: Basic Metabolic Panel; Complete Time: 18:27 beau 01/01 17:23 Order name: CBC with Diff; Complete Time: 18:27 beau 01/01 17:23 Order name: LFT's; Complete Time: 18:27 beau 01/01 17:23 Order name: Magnesium; Complete Time: 18:27 beau 01/01 17:23 Order name: NT PRO-BNP; Complete Time: 18:27 beau 01/01 17:23 Order name: PT-INR; Complete Time: 18:27 beau 01/01 17:23 Order name: Troponin HS; Complete Time: 18:27 beau 01/01 17:23 Order name: Lipase; Complete Time: 18:27 beau 01/01 17:23 Order name: UA Rfx Dylan Cult if indicated; Complete Time: 18:27 beau 01/01 17:23 Order name: COVID-19 Ag + Flu A+B Ag; Complete Time: 18:27 beau 01/01 19:08 Order name: CBC with Automated Diff EDMS 01/01 19:08 Order name: CBC with Automated Diff EDMS 01/01 19:08 Order name: Comprehensive Metabolic Panel EDMS 01/01 19:08 Order name: Comprehensive Metabolic Panel EDMS 01/01 19:08 Order name: Troponin High Sensitivity EDMS 01/01 19:08 Order name: Troponin High Sensitivity EDMS 01/01 19:08 Order name: Troponin High Sensitivity EDMS 01/01 19:08 Order name: Troponin High Sensitivity EDMS 01/01 17:23 Order name: XRAY Chest (1 view); Complete Time: 20:02 beau 01/01 17:23 Order name: Cardiac monitoring; Complete Time: 17:50 beau 01/01 Order name: EKG - Nurse/Tech; Complete Time: 17:50 [facility] 01/01 Order name: IV Saline Lock; Complete Time: 17:50 [facility] 01/01 Order name: Labs collected and sent; Complete Time: 17:50 [facility] 01/01 Order name: O2 Per Protocol; Complete Time: 17:50 [facility] 01/01 17 Order name: O2 Sat Monitoring; Complete Time: 17:50 [facility] EC:05 Rate is 69 beats/min. Rhythm is regular. QRS [place] is Normal. CA interval is normal. QRS beau interval is normal. QT interval is normal. No Q waves. T waves are Normal. T waves are Inverted in leads V5, V6. ST Segment is depressed in leads II, III, aVF. Clinical impression: NSR w/ Non-specific ST/T Changes. Interpreted by me. Administered Medications: : CANCELLED (Duplicate Order): ns 0.9% 500 ml 500 ml IV at 1 bolus once; to be given as a beau bolus over 30 minutes 18:11 Drug: Aspirin PO Chewable Tablet 81 mg PO once Route: PO; jp5 18:11 Drug: Enoxaparin Sub-Q 100 mg Sub-Q once Route: Sub-Q; Site: abdomen; jp5 18:11 Drug: Famotidine IVP 20 mg IVP once; dilute with 10 mL 0.9% NaCl; give over 2 minutes jp5 Route: IVP; Site: right antecubital; Disposition: 01/02 00:02 Co-signature as Attending Physician, Cristobal Vann DO. 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 failure(01/01/25 20:31) - Essential (primary) hypertension(01/01/25 20:31) tt7 - Abnormal electrocardiogram [ECG] [EKG](01/01/25 20:31) tt7 Followup: tt7 - With: Emergency Department - When: As needed - Reason: Followup: tt7 - With: Rosendo Polk MD - When: Tomorrow - Reason: Recheck today's complaints, Continuance of care, Re-evaluation by your physician Discharge Instructions: - Discharge Summary Sheet tt7 - Hypertension, Adult, [id number] tt7 - How to Take Your Blood Pressure, [id number] tt7 - Heart Failure, Diagnosis, [id number] tt7 - Managing Your Hypertension tt7 - Heart Failure, Self-Care, [id number] tt7 Forms: - Medication Reconciliation Form tt7 - Antibiotic Education tt7 - Prescription Opioid Use tt7 - Patient Portal Instructions tt7 - Leadership Thank You Letter tt7 Signatures: Dispatcher [employer] EDJose Antonio Moreira MD MD cha Villegas, Rebecca rv1 Radha Guzman, RN RN jp5 Jemima Miller RN RN kb4 Cristobal Vann, DO tt7 Corrections: (The following items were deleted from the chart) 01/01 17:20 17:20 PSHx: orthopedic surgery; kb4 kb4 17:23 17:23 NS 0.9% IV 500 ml 500 ml IV at 1 bolus once; to be given as a bolus over 30 beau minutes ordered. beau 17:23 17:23 BASIC METABOLIC PANEL+C.LAB.BRZ ordered. EDMS EDMS 17:23 17:23 CBC+H.LAB.BRZ ordered. EDMS EDMS 17:23 17:23 HEPATIC FUNCTION+C.LAB.BRZ ordered. EDMS EDMS 17:23 17:23 MAGNESIUM+C.LAB.BRZ ordered. EDMS EDMS 17:23 17:23 PROBNP+C.LAB.BRZ ordered. EDMS EDMS 17:23 17:23 PROTIME (+INR)+COAG.LAB.BRZ ordered. EDMS EDMS 17:23 17:23 Troponin High Sensitivity+C.LAB.BRZ ordered. EDMS EDMS 17:23 17:23 LIPASE+C.LAB.BRZ ordered. EDMS EDMS 17:23 17:23 UA Rfx Dylan Cult if indicated+U.LAB.BRZ ordered. EDMS EDMS 17:23 17:23 COVID-19 Ag + Flu A+B Ag+I.LAB.BRZ ordered. EDMS EDMS 17:23 17:23 Chest Single View+RAD.RAD.BRZ ordered. EDMS EDMS 19:19 18:37 beau rv1 20:29 18:37 Observation beau tt7 20:29 18:37 Jayesh Law beau tt7 20:29 18:37 Telemetry/MedSurg (Inpatient) beau tt7 20:29 18:37 Stable beau tt7 20:29 18:37 new beau tt7 20:29 18:37 have improved beau tt7 20:29 18:37 Standard beau tt7 20:29 18:37 Dyspnea beau tt7 20:29 18:37 Chronic combined systolic (congestive) and diastolic (congestive) heart failure tt7 beau 20:29 18:37 Dizziness and giddiness beau tt7 20:29 18:37 Essential (primary) hypertension beau tt7 20:29 18:37 Abnormal electrocardiogram [ECG] [EKG] beau tt7 20:29 18:37 Obesity, unspecified beau tt7 20:29 19:19 231 rv1 tt7 01/02 00:02 01/01 20:36 ED course: This is a 79 year old male. tt7 tt7
--- NOTE | 2025-01-01 18:38 | ER ---
Nurse's Notes [facility] Name: Casey Kahn Age: 79 yrs Sex: Male : 1945 Arrival Date: 01/01/2025 Time: 17:05 Bed 2 Private MD: Diagnosis: Chronic combined systolic (congestive) and diastolic (congestive) heart failure;Essential (primary) hypertension;Abnormal electrocardiogram [ECG] [EKG] Presentation: 01/01 17:13 Chief complaint: Patient states: pt states he's had worsening SOB since he got his BP kb4 medications changes 1 wk ago, dizziness and weakness when standing too quickly. Coronavirus screen: At this time, unable to obtain information related to travel outside the [place] Ebola Screen: No symptoms or risks identified at this time. Initial Sepsis Screen: Does the patient meet any 2 criteria? No. Patient's initial sepsis screen is negative. Does the patient have a suspected source of infection? No. Patient's initial sepsis screen is negative. Risk Assessment: Do you want to hurt yourself or someone else? Patient reports no desire to harm self or others. 17:13 Method Of Arrival: Ambulatory kb4 17:13 Acuity: AISHA 3 kb4 Triage Assessment: 17:20 General: Appears in no apparent distress. comfortable, Behavior is calm, cooperative. kb4 Pain: Denies pain. Respiratory: Reports shortness of breath on exertion Onset: The symptoms/episode began/occurred worse recently since new medications, has had SOB "whole life" , the patient has mild shortness of breath. Historical: - Allergies: 17:20 Sulfa (Sulfonamide Antibiotics); kb4 17:20 Hydocodone; kb4 - PMHx: 17:20 CHF (Hypertension); Diabetes - NIDDM; Hypertension; kb4 - Immunization history:: Adult Immunizations up to date. - Infectious Disease History:: Denies. - Social history:: Smoking status: Patient denies any tobacco usage or history of. Screenin:45 [facility] ED Fall Risk Assessment (Adult) History of falling in the last 3 months, ar8 including since admission No falls in past 3 months (0 pts) Confusion or Disorientation No (0 pts) Intoxicated or Sedated No (0 pts) Impaired Gait No (0 pts) Mobility Assist Device Used No (0 pt) Altered Elimination No (0 pt) Score/Fall Risk Level 0 - 2 = Low Risk Oriented to surroundings, Maintained a safe environment. Abuse screen: Denies threats or abuse. Nutritional screening: No deficits noted. Tuberculosis screening: No symptoms or risk factors identified. Assessment: 17:30 General: Appears in no apparent distress. Behavior is calm, cooperative. Pain: Denies ar8 pain. 17:30 Neuro: Level of Consciousness is awake, alert, obeys commands, Oriented to person, ar8 place, time, situation, Asian Studies Professor are equal bilaterally Moves all extremities. Full function Reports dizziness, since 1 wk. Cardiovascular: Patient's skin is warm and dry. Rhythm is sinus arrythmia. Respiratory: Airway is patent Respiratory effort is even, unlabored, Respiratory pattern is regular, symmetrical. Respiratory: Reports shortness of breath. GI: No signs and/or symptoms were reported involving the gastrointestinal system. : No signs and/or symptoms were reported regarding the genitourinary system. Musculoskeletal: Reports generalized weakness. 19:48 Reassessment: Patient appears in no apparent distress at this time. Patient and/or jb4 family updated on plan of care and expected duration. Pain level reassessed. Patient is alert, oriented x 3, equal unlabored respirations, skin warm/dry/pink. 20:52 Reassessment: Patient appears in no apparent distress at this time. Patient and/or jb4 family updated on plan of care and expected duration. Pain level reassessed. Patient is alert, oriented x 3, equal unlabored respirations, skin warm/dry/pink. Vital Signs: 17:13 BP 163 / 76; Pulse 73; Resp 18; Temp 98.3; Pulse Ox 97% on R/A; Weight 105.23 kg; kb4 Height 5 ft. 10 in. ; 18:32 BP 161 / 72; Pulse 67; Resp 19; Pulse Ox 97% on R/A; ar8 19:44 BP 173 / 79; Pulse 69; Resp 16; Pulse Ox 97% on R/A; jb4 17:13 Body Mass Index 33.29 (105.23 kg, 177.8 cm) kb4 Vitals: 19:44 Cardiac Rhythm Assessment Atrial fibrillation. jb4 ED Course: 17:07 Patient arrived in ED. im 17:20 Triage completed. kb4 17:20 Arm band placed on right wrist. kb4 17:22 Jose Antonio Feldman MD is Attending Physician. beau 17:45 Bed in low position. Call light in reach. Side rails up X2. Provided Education on: plan ar8 of care. Client placed on continuous cardiac and pulse oximetry monitoring. NIBP monitoring applied. 17:45 No provider procedures requiring assistance completed. EKG done, by ED staff, reviewed ar8 by Jose Antonio Feldman MD. 17:50 Troponin HS Sent. jp5 17:50 PT-INR Sent. jp5 17:50 NT PRO-BNP Sent. jp5 17:50 Magnesium Sent. jp5 17:50 LFT's Sent. jp5 17:50 CBC with Diff Sent. jp5 17:50 Basic Metabolic Panel Sent. jp5 17:50 Lipase Sent. jp5 17:50 UA Rfx Dylan Cult if indicated Sent. jp5 17:50 COVID-19 Ag + Flu A+B Ag Sent. jp5 17:50 Inserted saline lock: 20 gauge in right antecubital area, using aseptic technique. rk3 Blood collected. Flushed with 10 mL NS. 18:31 Tk Farrell, JESUS is Primary Nurse. ar8 18:36 Jayesh Law MD is Hospitalizing Provider. [facility] 18:41 XRAY Chest (1 view) In Process Unspecified. EDMS 20:27 Attending Physician role handed off by Jose Antonio Feldman MD tt7 20:27 Cristobal Vann DO is Attending Physician. tt7 20:30 Rosendo Polk MD is Referral Physician. tt7 Administered Medications: 17:23 CANCELLED (Duplicate Order): ns 0.9% 500 ml 500 ml IV at 1 bolus once; to be given as a beau bolus over 30 minutes 18:11 Drug: Aspirin PO Chewable Tablet 81 mg PO once Route: PO; jp5 18:11 Drug: Enoxaparin Sub-Q 100 mg Sub-Q once Route: Sub-Q; Site: abdomen; jp5 18:11 Drug: Famotidine IVP 20 mg IVP once; dilute with 10 mL 0.9% NaCl; give over 2 minutes jp5 Route: IVP; Site: right antecubital; Medication: 18:32 VIS not applicable for this client. ar8 Outcome: 18:37 Decision to Hospitalize by Provider. beau 20:31 Discharge ordered by . tt7 20:52 Discharged to home ambulatory, jb4 20:52 Condition: stable 20:52 Discharge instructions given to patient, Instructed on discharge instructions, follow up and referral plans. Demonstrated understanding of instructions, follow-up care, 20:53 Patient left the ED. jb4 Signatures: Dispatcher [employer] EDJose Antonio Moreira MD MD cha Bryson, James, RN RN jb4 Sofía Hernandez Jailene RN RN jp5 Jemima Miller RN RN kb4 Neelam Smith rk3 Tk Farrell RN RN ar8 Cristobal Vann DO DO tt7 Corrections: (The following items were deleted from the chart) 17:20 17:20 PSHx: orthopedic surgery; kb4 kb4
--- NOTE | 2025-01-01 18:43 | RAD REPORT ---
EXAMINATION: ONE VIEW CHEST XR CLINICAL INDICATION: DYSPNEA TECHNIQUE: Frontal chest projection is submitted. Examination is limited by patient positioning and t echnique. COMPARISON: 09/30/2024 FINDINGS: Lungs are mildly underinflated but grossly clear. The heart is mildly enlarged in size. No displaced fractures identified. Right humeral prosthesis. IMPRESSION: No acute intrathoracic abnormalities.
[2025-01-01] MEDS ORDERED: ALBUTEROL 2.5 MG/3 ML NEB SOL NEB PRN (19:03)
[2025-01-01] MEDS ORDERED: ONDANSETRON 4 MG/2 ML VIAL IV PRN (19:03)
[2025-01-01] MEDS ORDERED: ACETAMINOPHEN 325 MG TABLET PO PRN (19:03)
--- NOTE | 2025-01-01 19:03 | P.HP ---
Certification for Inpatient Patient admitted to: Inpatient With expected LOS: >2 Midnights Practitioner: I am a practitioner with admitting privileges, knowledge of patient current condition, hospital course, and medical plan of care. Services: Services provided to patient in accordance with Admission requirements found in Title 42 Section 412.3 of the Code of Federal Regulations Patient History Date of Service: 01/01/25 Reason for admission: SOB History of Present Illness: s 79 yrs old Male presents to ER via Ambulatory with complaints of beau Dizziness, Shortness Of Breath. 18:04 The patient presents with dizziness, generalized weakness. Onset: The symptoms/episode beau began/occurred 5 day(s) ago. Historical: - Allergies: 17:20 Sulfa (Sulfonamide Antibiotics); kb4 17:20 Hydocodone; kb4 - PMHx: 17:20 CHF (Hypertension); Diabetes - NIDDM; Hypertension; Allergies Sulfa (Sulfonamide Antibiotics) [Sulfa(Sulfonamide Antibiotics)] Allergy (Intermediate, Verified 09/30/24 14:58) Itching becerra pepper Allergy (Verified 09/30/24 14:58) SWELLING hydrocodone bitartrate [From Vicodin] Adverse Reaction (Verified 09/30/24 14:58) hallucinate Home medications list reviewed: Yes Home Medications: Atorvastatin Calcium 20 mg PO DAILY 01/18/24 Cyanocobalamin [Vitamin B-12*] 1 tab PO DAILY 01/18/24 Metformin HCl 1,000 mg PO BID 01/18/24 Red Beet Root/Sour Chan Ext [Beet Root-Tart Chan Gummy] 1 dose PO DAILY 01/18/24 Sertraline [Zoloft*] 50 mg PO DAILY 01/18/24 Tizanidine HCl 4 mg PO PRN PRN 01/18/24 Tumeric/Ging/[place]/Oreg/Capryl [Candicidal Capsule] 1 each PO DAILY 01/18/24 Spironolact/Hydrochlorothiazid [Spironolactone-Hctz 25-25 Tab] 1 each PO BID 30 Days #60 tab 01/19/24 - Past Medical/Surgical History Diabetic: Yes Past Medical History: Reviewed- Non-Contributory -: HTN -: Diabetic -: Depression -: HDL -: CHF Past Surgical History: Reviewed- Non-Contributory -: TALI knee Replacement -: RT shoulder replacement -: LT 3rd digit sx -: Back sx - Social History Alcohol use: No CD- Drugs: No Caffeine use: Yes Physical Examination - Studies Laboratory Data (last 24 hrs) 01/01/25 01/01/25 01/01/25 17:42 17:42 17:42 WBC 7.40 Hgb 14.7 Hct 43.7 Plt Count 237 PT 11.7 INR 1.04 Sodium 137 Potassium 3.9 BUN 20 H Creatinine 1.28 Glucose 245 H Magnesium 1.9 Total Bilirubin 0.4 AST 14 L ALT 22 Alkaline Phosphatase 118 H Lipase 24 Assessment and Plan - Advance Directives Does patient have a Living Will: No Does patient have a Durable POA for Healthcare: No
[2025-01-01] MEDS ORDERED: GLUCAGON 1 MG/VIAL IM PRN (19:32)
[2025-01-01] MEDS ORDERED: D50W 25 GM/50 ML SYRINGE IV PRN (19:32)
[2025-01-01] MEDS ORDERED: D5.45NS W/KCL 20MEQ 1,000 ML IV SCH (20:00)
[2025-01-01] MEDS ORDERED: D5 0.45 NS 1,000 ML IV SCH (20:00)
[2025-01-01] MEDS ORDERED: NACHLORIDE 0.45% 1,000 ML IV SCH (20:00)
[2025-01-01] MEDS ORDERED: INSULIN REGULAR, HUMAN 100 UNIT in NA CHLORIDE 0.9% 100 ML IV SCH (20:00)
[2025-01-01 22:53] VITALS: TEMP 98.3; O2SAT 97
[2025-01-01 22:55] VITALS: BP 173/79
[2025-01-02] MEDS ORDERED: ENOXAPARIN 40 MG/0.4 ML SQ SCH (09:00)
== END 2025-01-01 20:53 | disposition home or self-care (01) | DRG 291 ==
LOC: ER 17:05 → ERHOLD 19:03
PROVIDERS: ADMIT Family Medicine; ATTEND Family Medicine
DX: I11.0 Hypertensive heart disease with heart failure (principal); I50.43 Acute on chronic combined systolic (congestive) and diastolic (congestive) heart failure; E78.5 Hyperlipidemia, unspecified; E11.9 Type 2 diabetes mellitus without complications; Z88.2 Allergy status to sulfonamides; Z88.5 Allergy status to narcotic agent; Z11.52 Encounter for screening for COVID-19; Z79.84 Long term (current) use of oral hypoglycemic drugs; Z79.899 Other long term (current) drug therapy; Z96.653 Presence of artificial knee joint, bilateral; Z96.611 Presence of right artificial shoulder joint
CPT/HCPCS: 36415; 71045; 80048; 80076; 81001; 83690; 83735; 83880; 84484; 85025; 85610; 87428; 93005; 96372; 96374; 99284; J1650